=== PATIENT | female | born 1955 | race African-American/Black ===

== ENCOUNTER 2020-12-02 10:58 | Emergency (ER) | payer OTHER ==
[2020-12-02] MEDS ORDERED: LIDOCAINE 5% TOPICAL PATCH TP ONE (11:10)
[2020-12-02] MEDS ORDERED: METHOCARBAMOL 500 MG TABLET PO ONE (11:10)
[2020-12-02] MEDS ORDERED: KETOROLAC TROMETHAMINE 60 MG/2 ML VIAL IM ONE (11:10)
[2020-12-02 11:17] VITALS: BP 132/83; PULSE 71; TEMP 98.8; BMI 29.2
[2020-12-02] MEDS ORDERED: METHOCARBAMOL 500 MG TABLET ONE (11:21)
[2020-12-02] MEDS ORDERED: KETOROLAC TROMETHAMINE 60 MG/2 ML VIAL ONE (11:22)
[2020-12-02] MEDS ORDERED: LIDOCAINE 5% TOPICAL PATCH ONE (11:22)
[2020-12-02] MEDS ORDERED: LIDOCAINE PATCH REMOVAL MC SCH (22:00)
== END 2020-12-02 12:38 | disposition home or self-care (01) ==
LOC: FER 10:58
PROC: 3E0233Z Introduction of Anti-inflammatory into Muscle, Percutaneous Approach (ICD-10-PCS; principal; 2020-12-02)
DX: M62.838 Other muscle spasm (principal)
CPT/HCPCS: 99284-25

== ENCOUNTER 2022-09-09 07:12 | Day surgery (SDC) | payer OTHER ==
[2022-09-07 12:53] VITALS: BMI 29.6
[2022-09-09] MEDS ORDERED: CIPROFLOXACIN 0.3% EYE DROPS 5 ML BOTTLE ONE (07:17)
[2022-09-09] MEDS ORDERED: TROPICAMIDE 1% OPHTH SOLN 15 ML BOTTLE ONE (07:17)
[2022-09-09] MEDS ORDERED: CYCLOPENTOLATE 2% OPHTH SOLN 2 ML BOTTLE ONE (07:17)
[2022-09-09] MEDS ORDERED: PHENYLEPHRINE 2.5% OPHTH SOLN 15 ML BOTTLE ONE (07:17)
[2022-09-09] MEDS ORDERED: EPINEPHrine/PF 1 MG/1 ML (1:1,000) AMPULE ONE (07:19)
[2022-09-09] MEDS ORDERED: LIDOCAINE HCL/PF 1% SDV 5ML VIAL ONE (07:19)
[2022-09-09] MEDS ORDERED: TETRACAINE 0.5% OPHTH SOLN 2 ML BOTTLE ONE (07:19)
[2022-09-09] MEDS ORDERED: BSS (NA/CA/MG/K) BALANCED SALT SOLUTION OPHTH SOLN 15 ML BOTTLE ONE (07:19)
[2022-09-09] MEDS ORDERED: CARBACHOL 0.01% INTRA-OCULAR 1.5 ML VIAL ONE (07:20)
[2022-09-09] MEDS ORDERED: NEO/POLYMYX B SULF/DEXAMETH OPHTHALMIC 5ML BOTTLE ONE (07:20)
[2022-09-09] MEDS ORDERED: PHENYLEPHRINE 2.5% OPHTH SOLN 15 ML BOTTLE OS ONE ×3 (07:35→07:45)
[2022-09-09] MEDS ORDERED: OFLOXACIN 0.3% OPHTHALMIC SOLUTION 5 ML BOTTLE OS ONE ×3 (07:35→07:45)
[2022-09-09] MEDS ORDERED: TROPICAMIDE 1% OPHTH SOLN 15 ML BOTTLE OS ONE ×3 (07:35→07:45)
[2022-09-09 07:38] VITALS: RESP 18
[2022-09-09] MEDS ORDERED: CYCLOPENTOLATE 2% OPHTH SOLN 2 ML BOTTLE OS ONE ×2 (07:40→07:45)
[2022-09-09] MEDS ORDERED: MIDAZOLAM HCL 2 MG/2 ML SINGLE DOSE VIAL ONE (08:35)
[2022-09-09 09:38] VITALS: PULSE 67; TEMP 97.4
[2022-09-09 09:54] VITALS: BP 139/74
== END 2022-09-09 09:57 | disposition home or self-care (01) ==
LOC: FASU 07:12
PROVIDERS: ATTEND Ophthalmology
PROC: 08RK3JZ Replacement of Left Lens with Synthetic Substitute, Percutaneous Approach (ICD-10-PCS; principal; 2022-09-09 08:53)
DX: H26.8 Other specified cataract (principal)
CPT/HCPCS: 66984; V2632; 82962

== ENCOUNTER 2022-09-23 07:24 | Day surgery (SDC) | payer OTHER ==
[2022-09-21 14:29] VITALS: BMI 29.1
[2022-09-23] MEDS ORDERED: LIDOCAINE HCL/PF 1% SDV 5ML VIAL ONE (07:39)
[2022-09-23] MEDS ORDERED: TETRACAINE 0.5% OPHTH SOLN 2 ML BOTTLE ONE (07:40)
[2022-09-23] MEDS ORDERED: NEO/POLYMYX B SULF/DEXAMETH OPHTHALMIC 5ML BOTTLE ONE (07:40)
[2022-09-23] MEDS ORDERED: CARBACHOL 0.01% INTRA-OCULAR 1.5 ML VIAL ONE (07:40)
[2022-09-23] MEDS ORDERED: BSS (NA/CA/MG/K) BALANCED SALT SOLUTION OPHTH SOLN 15 ML BOTTLE ONE (07:40)
[2022-09-23] MEDS: CIPROFLOXACIN 0.3% EYE DROPS 5 ML BOTTLE ONE ×3 (07:55→08:05)
[2022-09-23] MEDS: PHENYLEPHRINE 2.5% OPHTH SOLN 15 ML BOTTLE ONE ×3 (07:55→08:05)
[2022-09-23] MEDS: CYCLOPENTOLATE 2% OPHTH SOLN 2 ML BOTTLE ONE ×3 (07:55→08:05)
[2022-09-23] MEDS: TROPICAMIDE 1% OPHTH SOLN 15 ML BOTTLE ONE ×3 (07:55→08:05)
[2022-09-23 07:58] VITALS: RESP 16
[2022-09-23] MEDS ORDERED: MIDAZOLAM HCL 2 MG/2 ML SINGLE DOSE VIAL ONE (08:32)
[2022-09-23 10:37] VITALS: TEMP 96
[2022-09-23 10:39] VITALS: BP 138/81; PULSE 66
== END 2022-09-23 09:45 | disposition home or self-care (01) ==
LOC: FASU 07:24
PROVIDERS: ATTEND Ophthalmology
PROC: 08RJ3JZ Replacement of Right Lens with Synthetic Substitute, Percutaneous Approach (ICD-10-PCS; principal; 2022-09-23 08:38)
DX: H26.8 Other specified cataract (principal)
CPT/HCPCS: 66984; V2632; 82962

== ENCOUNTER 2022-10-12 22:28 | Emergency (ER) | payer OTHER ==
[2022-10-12 22:56] VITALS: PULSE 70; RESP 18; TEMP 98; BMI 29.6
[2022-10-12] MEDS ORDERED: cloNIDine HCL 0.1 MG TABLET PO ONE (23:04)
[2022-10-12] MEDS ORDERED: cloNIDine HCL 0.1 MG TABLET ONE (23:21)
[2022-10-13 00:03] VITALS: BP 160/90
== END 2022-10-13 00:03 | disposition home or self-care (01) ==
LOC: FER 22:28
DX: R51.9 Headache, unspecified (principal); I10 Essential (primary) hypertension
CPT/HCPCS: 99283-25

== ENCOUNTER 2024-07-10 13:58 | Emergency (ER) | payer OTHER ==
[2024-07-10 14:17] VITALS: BP 130/85; PULSE 66; RESP 18; TEMP 97.5; BMI 28.9
[2024-07-10] MEDS ORDERED: METOCLOPRAMIDE HCL INJECTION 10 MG/2 ML VIAL ONE (15:18)
[2024-07-10] MEDS ORDERED: ACETAMINOPHEN INJECTION 100 ML ONE (15:18)
[2024-07-10] MEDS: SODIUM CHLORIDE 0.9% 500 ML INFUS.BAG IV ONE (15:25)
[2024-07-10] MEDS: ACETAMINOPHEN 1000 MG/100 ML BAG IVPB ONE (15:25)
[2024-07-10] MEDS: METOCLOPRAMIDE HCL INJECTION 10 MG/2 ML VIAL IVPUSH ONE (15:48)
== END 2024-07-10 17:30 | disposition home or self-care (01) ==
LOC: FER 13:58
PROC: 3E033NZ Introduction of Analgesics, Hypnotics, Sedatives into Peripheral Vein, Percutaneous Approach (ICD-10-PCS; principal; 2024-07-10)
PROC: 3E033GC Introduction of Other Therapeutic Substance into Peripheral Vein, Percutaneous Approach (ICD-10-PCS; 2024-07-10)
DX: R51.9 Headache, unspecified (principal)
CPT/HCPCS: 99284-25; J0131